=== PATIENT | female | born 1980 | race Two or more races ===

== ENCOUNTER 2020-06-16 09:05 | Day surgery (SDC) | payer OTHER | END 2020-06-16 15:40 | disposition home or self-care (01) | LOC: AMB-ENDOS 09:05 | PROVIDERS: ATTEND Colon & Rectal Surgery | DX: D12.5 Benign neoplasm of sigmoid colon (principal); K64.1 Second degree hemorrhoids; Z20.828 Contact with and (suspected) exposure to other viral communicable diseases ==